=== PATIENT | male | born 1945 | race Caucasian/White ===

== ENCOUNTER 2020-11-24 11:59 | Outpatient (CLI) | payer MEDICARE, BC ==
[2020-11-24] VITALS (7 sets, daily range): BP systolic 118–146; BP diastolic 66–89; PULSE 58–70
[~2020-11-24] VITALS: Ht 177.8 cm; Wt 121.3 kg
[2020-11-24] MEDS ORDERED: ATACAND HCT 321 TA1 PO (12:31)
[2020-11-24] MEDS ORDERED: LIPITOR 40MG TA40 MG PO (12:31)
[2020-11-24] MEDS ORDERED: CLARITIN LIQUI-10 MG PO (12:32)
[2020-11-24] MEDS ORDERED: MOBIC15 MG PO (12:32)
[2020-11-24] MEDS ORDERED: GLUCOPHAGE500 MG/TAB PO (12:33)
[2020-11-24] MEDS ORDERED: FLOMAX 0.40.4 MG/CAP PO (12:34)
[2020-11-24] MEDS ORDERED: SINGULAIR 110 MG/TAB PO (12:34)
[2020-11-24] MEDS ORDERED: EFFEXOR XR75 MG/CAP PO (12:36)
[2020-11-24] MEDS ORDERED: EFFEXOR-XR150 MG PO (12:36)
[2020-11-24] MEDS ORDERED: EFFEXOR 3737.5 MG/TA PO (12:37)
[2020-11-24] MEDS ORDERED: COMBIGAN 0.2%-0.5 ML OU (12:39)
[2020-11-24] MEDS ORDERED: SYSTANE 0.4%-0.1 SOL OP (12:39)
[2020-11-24] MEDS ORDERED: FLONASE NASAL S16 GM NS (12:40)
[2020-11-24 13:58] LABS: GLUCOSE,CSF 64 mg/dL (40-70); TOTAL PROTEIN,CSF 79 mg/dL (15-45)
[2020-11-24 14:38] LABS: CSF APPEARANCE CLEAR; CSF COLOR COLORLESS; CSF MONONUCLEAR 73 % (70-100); CSF POLYMORPHONUCLEAR 27 % (0-6); CSF RBC 205 /mm3 (0-0)
--- NOTE | 2020-11-24 14:40 | NUR ---
DC instructions reviewed with pt and . Both express understanding. Pt denies headache, or dizziness while sitting up. He is able to transfer from bed to wheelchair with steady gait. He is assisted out to 's car by wheelchair.
== END 2020-11-24 14:40 | disposition home or self-care (01) ==
LOC: COL.RAD 11:59
PROVIDERS: Internal Medicine
DX: R93.89 Abnormal findings on diagnostic imaging of other specified body structures (principal)

== ENCOUNTER 2022-03-03 13:38 | Emergency (ER) | payer MEDICARE, BC ==
[~2022-03-03] VITALS: Ht 177.8 cm; Wt 122.7 kg
[~2022-03-03 13:38] MED LIST: ATACAND HCT 321 TA1 PO; CLARITIN LIQUI-10 MG PO; COMBIGAN 0.2%-0.5 ML OU; EFFEXOR 3737.5 MG/TA PO; EFFEXOR XR75 MG/CAP PO; EFFEXOR-XR150 MG PO; FLOMAX 0.40.4 MG/CAP PO; FLONASE NASAL S16 GM NS; GLUCOPHAGE500 MG/TAB PO; LIPITOR 40MG TA40 MG PO; MOBIC15 MG PO; SINGULAIR 110 MG/TAB PO; SYSTANE 0.4%-0.1 SOL OP
[2022-03-03 14:09] VITALS: TEMP 98
[2022-03-03] MEDS ORDERED: NORCO 325 MG-51 TAB PO (15:37)
[2022-03-03] MEDS ORDERED: FLEXERIL 1010 MG/TAB PO (15:37)
[2022-03-03] MEDS ORDERED: PREDNISONE20 MG PO (15:37)
[2022-03-03 15:50] VITALS: BP 178/93; PULSE 65
== END 2022-03-03 15:50 | disposition home or self-care (01) ==
LOC: COL.ER 13:38
DX: M54.42 Lumbago with sciatica, left side (principal)
CPT/HCPCS: J7512

== ENCOUNTER → 2022-04-23 | Outpatient (CLI) | payer MEDICARE, BC ==
[~2022-04-23] MED LIST changes: +FLEXERIL 1010 MG/TAB PO; +NORCO 325 MG-51 TAB PO; +PREDNISONE20 MG PO
== END ==
LOC: COL.PUL 12:59
DX: R06.02 Shortness of breath (principal)
CPT/HCPCS: J7674